=== PATIENT | female | born 1955 | race Caucasian/White ===

== ENCOUNTER 2018-06-13 14:27 | Emergency (ER) | payer OTHER ==
[~2018-06-13] VITALS: Ht 165.1 cm; Wt 72.6 kg
[~2018-06-13 14:27] MED LIST: LISINOPRIL-HCT1 EAC1 PO; NORCO 5-325 TA1 EACH PO; THYROID30 MG PO
[2018-06-13] MEDS ORDERED: PIROXICAM20 MG PO (14:45)
[2018-06-13] MEDS ORDERED: HYDROMORPHONE HC2 MG PO (17:48)
[2018-06-13] MEDS ORDERED: ONDANSETRON ODT8 MG PO (17:48)
[2018-06-13] MEDS ORDERED: PROMETHAZINE HC25 M1 PO (17:48)
== END 2018-06-13 18:19 | disposition home or self-care (01) ==
LOC: ED 14:27
DX: R10.9 Unspecified abdominal pain (principal); C22.9 Malignant neoplasm of liver, not specified as primary or secondary; I10 Essential (primary) hypertension; E03.9 Hypothyroidism, unspecified; Z87.891 Personal history of nicotine dependence; Z79.899 Other long term (current) drug therapy
CPT/HCPCS: 74177; 80053; 81001; 83690; 85025; 96361; 96374; 96375; 99284; J1170; J2405; J7030; Q9967

== ENCOUNTER 2018-12-24 12:20 | Emergency (ER) | payer MEDICARE, OTHER ==
[~2018-12-24] VITALS: Ht 165.1 cm; Wt 65.8 kg
[~2018-12-24 12:20] MED LIST changes: +CONSTULOSE10 GM/15 M PO; +DULCOLAX5 MG PO; +HYDROMORPHONE HC2 MG PO; +MELATONIN1 M1 SL; +ONDANSETRON ODT8 MG PO; +PIROXICAM20 MG PO; +PROMETHAZINE HC25 M1 PO; +THYROID120 MG PO
--- OUTSIDE RECORDS SUMMARY | 2018-12-24 12:24 | XMS ---
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 Janis has no Care Guidelines for this patient. Abraham VISIT COUNT (12 MO.) 3 [facility] TOTAL 3 NOTE: Visits indicate total known visits. ED/C VISIT TRACKING (12 MO.) 12/24/2018 12:21 [facility] [place] TYPE: Emergency COMPLAINT: - LIVER PROBLEM 06/13/2018 14:27 [facility] [place] TYPE: Emergency COMPLAINT: - BACK PAIN/VOMITING/NO INJURY DIAGNOSES: - Malignant neoplasm of liver, not specified as primary or secondary - Other group home (current) drug therapy - Essential (primary) hypertension - Hypothyroidism, unspecified - Unspecified abdominal pain - Personal history of nicotine dependence 03/06/2018 15:32 [facility] [place] TYPE: Emergency COMPLAINT: - ABD PAIN DIAGNOSES: - Left upper quadrant pain - Hepatomegaly, not elsewhere classified INPATIENT VISIT TRACKING (12 MO.) No inpatient visits to display in this time frame [email or web address]
== END 2018-12-24 20:15 | disposition short-term general hospital (02) ==
LOC: ED 12:20
DX: K83.1 Obstruction of bile duct (principal); C22.8 Malignant neoplasm of liver, primary, unspecified as to type; I10 Essential (primary) hypertension; E03.9 Hypothyroidism, unspecified; Z87.891 Personal history of nicotine dependence; Z79.899 Other long term (current) drug therapy
CPT/HCPCS: 74177; 80053; 83690; 85025; 85610; 85730; 99284-25; Q9967

== ENCOUNTER 2019-02-25 18:19 | Emergency (ER) | payer MEDICARE, OTHER ==
[~2019-02-25] VITALS: Ht 165.1 cm; Wt 61.8 kg
[~2019-02-25 18:19] MED LIST changes: +OPDIVO240 MG/24 IV
--- OUTSIDE RECORDS SUMMARY | 2019-02-25 18:22 | XMS ---
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 Care History Medical/Surgical 12/25/2018 [facility] - Patient is currently established with [facility]. If patient is seen in the ED during business hours. Please contact [facility]Ws at [facility]. Care Recommendation: This patient has had 5 or more Emergency Department visits in the last 12 months.\T\nbsp; Patient requires education on the scope and purpose of the ED as an acute care provider not a Primary Care Provider and should not be utilized for chronic conditions.\T\nbsp; These are guidelines and the provider should exercise clinical judgment when providing care. E.D. VISIT COUNT (12 MO.) 4 [facility] TOTAL 4 NOTE: Visits indicate total known visits. ED/UCC VISIT TRACKING (12 MO.) 02/25/2019 18:19 [facility] [place] TYPE: Emergency COMPLAINT: - WEAKNESS, DIARRHEA 12/24/2018 12:21 [facility] [place] TYPE: Emergency COMPLAINT: - LIVER PROBLEM DIAGNOSES: - Obstruction of bile duct - Other detention (current) drug therapy - Hypothyroidism, unspecified - Personal history of nicotine dependence - Obstruction of bile duct - Essential (primary) hypertension - Malignant neoplasm of liver, primary, unspecified as to type 06/13/2018 14:27 [facility] [place] TYPE: Emergency COMPLAINT: - BACK PAIN/VOMITING/NO INJURY DIAGNOSES: - Malignant neoplasm of liver, not specified as primary or secondary - Other lighting technician (current) drug therapy - Essential (primary) hypertension - Hypothyroidism, unspecified - Unspecified abdominal pain - Personal history of nicotine dependence 03/06/2018 15:32 [facility] TYPE: Emergency COMPLAINT: - ABD PAIN DIAGNOSES: - Left upper quadrant pain - Hepatomegaly, not elsewhere classified INPATIENT VISIT TRACKING (12 MO.) 12/25/2018 00:44 [facility] TYPE: Inpatient DIAGNOSES: 75250. OBSTRUCTIVE JAUNDICE 69851. Malignant (primary) neoplasm, unspecified 61649. Obstruction of bile duct 02060. Liver cell carcinoma [id number]
== END 2019-02-25 21:54 | disposition home or self-care (01) ==
LOC: ED 18:19
DX: R19.7 Diarrhea, unspecified (principal); R53.1 Weakness; I10 Essential (primary) hypertension; E03.9 Hypothyroidism, unspecified; Z87.891 Personal history of nicotine dependence; Z79.899 Other long term (current) drug therapy
CPT/HCPCS: 80053; 81001; 82140; 83605; 83690; 85025; 96360; 99284-25; J7030